=== PATIENT | female | born 1955 | race Caucasian/White ===

== ENCOUNTER → 2018-07-29 09:05 | Outpatient (CLI) | payer BC, SELFPAY ==
[2018-07-29 09:28] LABS: Add Manual Diff / Slide Review NO; Basophils Absolute Auto 100 /uL (0-100); Basophils Percent Auto 0.9 % (0-2); Eosinophils Absolute Auto 100 /uL (0-450); Eosinophils Percent Auto 0.9 % (2-4); Hematocrit 41.2 % (36-46); Hemoglobin 13.9 g/dL (12.0-16.0); Lymphocytes Absolute Auto 1600 /uL (1100-4500); Lymphocytes Percent Auto 28.5 % (25-40); Mean Corpuscular HGB Conc 33.7 % (30-36); Mean Corpuscular Hemoglobin 34.6 PG (26-34); Mean Corpuscular Volume 102.6 fL (80-100); Monocytes Absolute Auto 500 /uL (0-900); Neutrophils Absolute Auto 3500 /uL (1500-7000); Neutrophils Percent Auto 61.7 % (50-75); Platelet Count 288 X10^3/uL (150-400); Red Blood Cell Count 4.02 X10^6/uL (4.0-5.2); Red Cell Distribution Width 13.8 % (11.6-14.8); White Blood Cell Count 5.8 X10^3/uL (4.5-11.0)
[2018-07-29 09:29] LABS: Creatinine Urine Random 62.4 mg/dL
[2018-07-29 09:34] LABS: Microalbumi Creatinin Ratio Ur 9.6 ug/mg CR (<30); Microalbumin Urine Random < 0.6 mg/dL (0-1.6)
[2018-07-29 09:43] LABS: Alanine Aminotransferase 33 IU/L (9-52); Albumin 4.6 g/dL (3.5-5.0); Albumin Globulin Ratio 1.6 (1.0-2.8); Alkaline Phosphatase 64 U/L (38-126); Aspartate Aminotransferase 28 IU/L (14-36); BUN Creatinine Ratio 22.2 (6-22); Bilirubin Total 0.5 mg/dL (0.2-1.3); Blood Urea Nitrogen 20 mg/dL (7-17); Calcium 9.5 mg/dL (8.4-10.2); Carbon Dioxide 29 mmol/L (22-32); Chloride 103 mmol/L (98-107); Cholesterol 210 mg/dL (140-199); Estimated Glomerular Filt Rate > 60.0 mL/min (>60); Globulin 2.8 g/dL (1.7-4.1); Glucose 89 mg/dL (80-110); HDL Cholesterol 64 mg/dL (40-60); HEMOLYSIS < 15 (0-50); LDL Cholesterol Calculated 128 mg/dL (<100); Potassium 4.4 mmol/L (3.4-5.1); Sodium 140 mmol/L (137-145); Total Protein 7.4 g/dL (6.3-8.2); Triglycerides 92 mg/dL (35-150)
== END ==
PROVIDERS: PCP Physician Assistant; Visit Provider Physician Assistant
DX: I49.9 Cardiac arrhythmia, unspecified (principal); R53.83 Other fatigue; Z13.220 Encounter for screening for lipoid disorders; Z13.6 Encounter for screening for cardiovascular disorders; Z86.79 Personal history of other diseases of the circulatory system; Z95.810 Presence of automatic (implantable) cardiac defibrillator; Z51.81 Encounter for therapeutic drug level monitoring
CPT/HCPCS: 36415; 80053; 80061; 82043; 82570; 85025

== ENCOUNTER → 2018-10-26 12:22 | Outpatient (CLI) | payer BC, SELFPAY ==
--- NOTE | 2018-10-26 12:24 | DI.MG.S_ITS ---
BILATERAL DIGITAL SCREENING MAMMOGRAM 3D/2D WITH CAD: 10/26/2018 CLINICAL: Routine screening. Family history of breast cancer. Comparison is made to exams dated: 11/05/2013 mammogram, 07/03/2011 mammogram, and 04/19/2010 mammogram - [facility]. The tissue of both breasts is heterogeneously dense. This may lower the sensitivity of mammography. Current study was also evaluated with a Computer Aided Detection (CAD) system. There are benign calcifications in both breasts. No significant masses, calcifications, or other findings are seen in either breast. There has been no significant interval change. IMPRESSION: There is no mammographic evidence of malignancy. A 1 year screening mammogram is recommended. This exam was interpreted at Station ID: [id number]. NOTE: For mammograms, a report in lay terms will be sent to the patient. Approximately 15% of breast malignancies will not be visualized mammographically. In the management of a palpable breast mass, a negative mammogram must not discourage biopsy of a clinically suspicious lesion. Electronically Signed By: Alfa almanza/lito:10/26/2018 16:49:56 letter sent: Normal Exam ACR BI-RADS Category 2: Benign Finding(s) 3342F
== END ==
PROVIDERS: PCP Physician Assistant; Visit Provider Physician Assistant
DX: Z12.31 Encounter for screening mammogram for malignant neoplasm of breast (principal); Z80.3 Family history of malignant neoplasm of breast
CPT/HCPCS: 77063; 77067

== ENCOUNTER → 2019-03-11 08:01 | Outpatient (CLI) | payer MEDICARE, BC, SELFPAY ==
[2019-03-11 09:16] LABS: Add Manual Diff / Slide Review NO; Basophils Absolute Auto 0 /uL (0-100); Basophils Percent Auto 0.7 % (0-2); Eosinophils Absolute Auto 100 /uL (0-450); Eosinophils Percent Auto 1.2 % (2-4); Hematocrit 41.3 % (36-46); Hemoglobin 14.1 g/dL (12.0-16.0); Lymphocytes Absolute Auto 1700 /uL (1100-4500); Mean Corpuscular HGB Conc 34.2 % (30-36); Mean Corpuscular Hemoglobin 34.5 PG (26-34); Mean Corpuscular Volume 100.9 fL (80-100); Monocytes Absolute Auto 500 /uL (0-900); Monocytes Percent Auto 6.9 % (3-14); Neutrophils Absolute Auto 4400 /uL (1500-7000); Neutrophils Percent Auto 66.2 % (50-75); Platelet Count 302 X10^3/uL (150-400); Red Cell Distribution Width 13.8 % (11.6-14.8); White Blood Cell Count 6.7 X10^3/uL (4.5-11.0)
[2019-03-11 09:27] LABS: Alanine Aminotransferase 20 IU/L (9-52); Albumin 4.1 g/dL (3.5-5.0); Albumin Globulin Ratio 1.3 (1.0-2.8); Alkaline Phosphatase 53 U/L (38-126); Aspartate Aminotransferase 26 IU/L (14-36); BUN Creatinine Ratio 22.9 (6-22); Bilirubin Total 0.5 mg/dL (0.2-1.3); Blood Urea Nitrogen 16 mg/dL (7-17); Calcium 9.2 mg/dL (8.4-10.2); Carbon Dioxide 24 mmol/L (22-32); Chloride 106 mmol/L (98-107); Estimated Glomerular Filt Rate > 60.0 mL/min (>60); Globulin 3.1 g/dL (1.7-4.1); Glucose 93 mg/dL (80-110); HEMOLYSIS < 15 (0-50); Sodium 141 mmol/L (137-145); Total Protein 7.2 g/dL (6.3-8.2)
[2019-03-11 10:23] LABS: Thyroid Stimulating Hormone 3.45 uIU/mL (0.47-4.68)
== END ==
PROVIDERS: PCP Physician Assistant; Visit Provider Internal Medicine Cardiovascular Disease
DX: I49.8 Other specified cardiac arrhythmias (principal); I47.2 Ventricular tachycardia
CPT/HCPCS: 36415; 80053; 84443; 85025

== ENCOUNTER 2019-06-16 07:42 | Day surgery (SDC) | payer MEDICARE, BC, SELFPAY ==
[2019-06-16 08:10] VITALS: BP 118/75; PULSE 74; RESP 15; TEMP 36.1; O2SAT 98
[2019-06-16 08:12] VITALS: BMI 26.6
--- NOTE | 2019-06-16 08:25 | PM.PREOP ---
Pre-operative Note Interval Note History & Physical reviewed/Exam performed by Physician: Yes Changes to H&P: No
[2019-06-16] MEDS: LACTATED RINGERS 1,000 ML 42 ML IV (08:30)
--- NOTE | 2019-06-16 09:18 | PM.OP.ENDO ---
Operative Date/Time/Diagnoses Date of procedure: 06/16/19 Time of procedure: 09:18 Pre-op diagnosis: Average risk for colon cancer, never had screening colonoscopy Post-op diagnosis: same Procedure & Clinicians Study performed: Colonoscopy Same procedure as scheduled: Yes Indications: This is a 64-year-old woman with a history of life-threatening cardiac arrhythmias who has an ICD in pacer implanted. She has never had a screening colonoscopy due to her other medical issues. She is here today for her 1st screening colonoscopy, which will be done under monitored anesthesia care. Surgeon: Carlota Ibarra Procedure Notes SCOAP/Timeout: Performed Procedure in detail: The patient was brought to the room and placed in left lateral decubitus position with all bony prominences padded. A time-out was performed and then the patient was given procedural sedation by the anesthesiologist. Vitals were monitored throughout the procedure and remained stable. Once adequately sedated the procedure was begun. A rectal exam was performed revealing [no abnormalities]. The colonoscope was then introduced to the rectum and advanced to the cecum in the usual fashion. []The cecum was identified by the appendiceal orifice, the mucosal try fold, and the ileocecal valve. The scope was then retracted while rotating side to side and examining each mucosal fold. [No abnormalities were seen.] At the conclusion procedure retroflexion was performed and minimal grade 1 internal hemorrhoids without stigmata of bleeding were seen. The scope was then withdrawn from the rectum the procedure was concluded. The patient tolerated the procedure well was transferred to the PACU in stable condition. Scope withdrawal time: 8 Specimen(s): none sent Complications: none Impression: Normal colon, no polyps, diverticula or significant hemorrhoids seen Post-procedure Recommendations: Colonscopy in 10 years (Unless new or concerning colorectal symptoms arise) Follow up: as needed Disposition: PACU
[2019-06-16 09:21] VITALS: BP 110/68; PULSE 71; RESP 6; TEMP 36.1; O2SAT 97
[2019-06-16 09:27] VITALS: BP 113/68; PULSE 70; RESP 16; O2SAT 97
[2019-06-16 09:31] VITALS: BP 113/70; PULSE 73; RESP 15; O2SAT 97
[2019-06-16 09:36] VITALS: BP 116/70; PULSE 69; RESP 17; O2SAT 97
[2019-06-16 09:59] VITALS: BP 120/77; PULSE 71; RESP 14; TEMP 35.8; O2SAT 99
== END 2019-06-16 10:11 | disposition home or self-care (01) ==
PROVIDERS: PCP Physician Assistant; Visit Provider Surgery
PROC: 0DJD8ZZ Inspection of Lower Intestinal Tract, Via Natural or Artificial Opening Endoscopic (ICD-10-PCS; CPT 45378; principal; 2019-06-16 08:45)
DX: Z12.11 Encounter for screening for malignant neoplasm of colon (principal); K64.0 First degree hemorrhoids
CPT/HCPCS: G0121; J2250; J2704; J3010

== ENCOUNTER 2019-07-06 00:09 | Emergency (ER) | payer MEDICARE, BC, SELFPAY ==
[2019-07-06 00:26] VITALS: BP 119/73; PULSE 74; RESP 18; TEMP 36.9; O2SAT 98; BMI 25.7
--- NOTE | 2019-07-06 00:26 | DI.RAD.S_ITS ---
PROCEDURE: XR CHEST 2V INDICATIONS: chest pain with cough TECHNIQUE: 2 views of the chest were acquired. COMPARISON: None. FINDINGS: Surgical changes and devices: There is a cardiac pacemaker/defibrillator with leads in appropriate position. Lungs and pleura: Mild left basilar infiltrate or atelectasis. No pleural effusions or pneumothorax. Mediastinum: Mediastinal contours are normal. Heart size is normal. Bones and chest wall: No suspicious bony abnormalities. Soft tissues appear unremarkable. IMPRESSION: Mild left basilar infiltrate or atelectasis. Dictated by: Faby Carbajal M.D. on 07/06/2019 at 8:51 Approved by: Faby Carbajal M.D. on 07/06/2019 at 8:52
[2019-07-06] MEDS: ALBUTEROL/IPRATROPIUM 3 ML AMPUL INH (00:50)
[2019-07-06] MEDS: KETOROLAC 60 MG/2 ML VIAL IM (00:50)
--- NOTE | 2019-07-06 01:25 | ED_ITS ---
HPI - URI/Sore Throat General Chief Complaint: Upper Respiratory Symptoms Stated Complaint: throat/chest pain Time Seen by Provider: 07/06/19 00:10 Source: patient Mode of arrival: Ambulatory Limitations: no limitations History of Present Illness HPI Narrative: 64-year-old female nonsmoker with cardiac history presents with a chief complaint of runny nose, sore throat, dry hacking cough and sharp and stabbing pleuritic type chest pain. She has had upper respiratory symptoms for about 1 week and presented to the walk-in clinic today for evaluation. They tested her for strep which was negative and gave her prescription for Tessalon Perles and nasal spray. She states that those medications are not helping and every time she coughs or takes a deep breath the sharp and stabbing pain is becoming unbearable. She denies recent long distance travel, history of clot, injuries or surgeries. She denies any hemoptysis or shortness of breath. She is not dizzy nor weak or lightheaded, and denies any vomiting or diarrhea. She has not taken any Tylenol or Motrin MD Complaint: cough, sore throat, rhinorrhea and nasal congestion Onset (ago): day(s) Duration: constant Severity: moderate Relieving factors: nothing Exacerbating factors: other Able to tolerate fluids by mouth: Yes Associated symptoms: rhinorrhea, nasal congestion, sore throat, cough and chest pain Related Data Home Medications Medication Instructions Recorded Confirmed ICD (Implantable Cardio Device) #1 ea 02/26/18 07/05/19 Septalocculsion Device IMPLANT 07/29/18 07/05/19 midodrine 2.5 mg tablet 2.5 mg PO ONCE PRN 12/10/18 07/05/19 flecainide 100 mg tablet 100 mg PO Q12H 05/21/19 07/05/19 Previous Rx's Medication Instructions Recorded estradiol See Rx Instructions VAG .HS #42.5 11/11/18 gram estradiol 0.075 mg/24 hr 1 patch TRANSDERMAL 2XW #24 each 11/18/18 semiweekly transdermal patch rizatriptan 10 mg tablet 10 mg PO Q2H PRN #27 tab 04/12/19 benzonatate 100 mg capsule 100 mg PO BID PRN #20 cap 07/05/19 fluticasone propionate 50 1 spray NASAL BID 14 Days #18.2 ml 07/05/19 mcg/actuation nasal spray,suspension codeine-guaifenesin 8 ml PO Q4-6H PRN #473 ml 07/06/19 ketorolac 10 mg PO Q6H PRN #14 tab 07/06/19 Allergies Allergy/AdvReac Type Severity Reaction Status Date / Time shellfish derived Allergy Severe Tongue & Verified 07/05/19 08:16 eye swelling, hives Review of Systems Constitutional Constitutional: Denies chills, Denies fatigue, Denies fever(s), Denies frequent falls, Denies lethargy and Denies weakness Eyes Eyes: Denies change in vision, Denies eye discharge, Denies irritation and Denies loss of vision ENT Ears, Nose, Mouth, and Throat: Denies change in voice, Denies dizziness, Denies neck pain, Reports sore throat and Denies throat swelling Cardiovascular Cardiovascular: Reports chest pain, Denies irregular heart rhythm, Denies lightheadedness, Denies palpitations, Denies dyspnea, Denies dyspnea on exertion and Denies orthopnea Respiratory Respiratory: Reports cough, Reports pain on inspiration, Reports pain with cough, Denies dyspnea, Denies dyspnea on exertion and Denies wheezing Gastrointestinal Gastrointestinal: Denies abdominal pain, Denies change in bowel habits, Denies diarrhea, Denies nausea and Denies vomiting Genitourinary Genitourinary: Denies hematuria, Denies flank pain, Denies urinary incontinence and Denies urinary urgency Musculoskeletal Musculoskeletal: Denies back pain, Denies muscle weakness, Denies neck pain, Denies numbness and Denies tingling Integumentary/Breasts Skin/Breast: Denies pruritus, Denies erythema, Denies rash and Denies wounds Neurologic Neurologic: Denies behavioral changes, Denies confusion, Denies dizziness, Denies frequent falls, Denies loss of vision, Denies numbness, Denies tingling and Denies weakness Psychiatric Psychiatric: Denies anxiety, Denies behavioral changes, Denies confusion, Denies depression, Denies homicidal ideation and Denies suicidal ideation Endocrine Endocrine: Denies fatigue, Denies flushing and Denies palpitations Hematologic/Lymphatic Hematologic/Lymphatic: Denies easy bruising Allergic/Immunologic Allergic/Immunologic: Denies urticaria, Denies throat swelling and Denies wheezing Patient History Surgical History History of implantable cardiac defibrillator (ICD) (Acute) Hx of hysterectomy (Acute) Hx of tonsillectomy (Acute) Social History marital status: unmarried,living together household members: significant other occupational status: previously employed Smoking Status: Never smoker second hand exposure: No alcohol intake: current (a beer or two once a month.) substance use type: does not use Smoking Status: Never smoker Exam Narrative Exam Narrative: GENERAL: [64] year old patient appears stated age. Well- nourished, well-developed patient, in mild distress. HEAD: Atraumatic. Normocephalic. EYES: Pupils equal round and reactive. Extraocular motions intact. No scleral icterus. No injection or drainage. ENT: Nose without bleeding, purulent drainage. Throat without erythema, tonsillar hypertrophy or exudate. Clear postnasal drip. Airway patent. NECK: Trachea midline. Non tender CARDIOVASCULAR: Regular rate and rhythm without murmurs, gallops, or rubs. RESPIRATORY: Clear to auscultation. Breath sounds equal bilaterally. No wheezes, rales, or rhonchi. Deep breath elicits cough, subtle wheeze noted. GASTROINTESTINAL: Abdomen soft, non-tender, nondistended. EXTREMITIES: No edema or joint tenderness. BACK: Nontender without deformity or crepitance. No flank tenderness. NEURO: AOx3. SKIN: No rash or erythema of visible areas Initial Vital Signs Initial Vital Signs: Vital Signs Temperature 98.4 F 07/06/19 00:26 Pulse Rate 74 07/06/19 00:26 Respiratory Rate 18 07/06/19 00:26 Blood Pressure 119/73 07/06/19 00:26 Pulse Oximetry 98 07/06/19 00:26 Course Orders Ordered: ED Orders 07/06/19 00:26 XR chest 2V Stat EKG-12 Lead Stat 07/06/19 00:54 Throat Culture Stat 07/06/19 00:56 Influenza A & B (PCR) Stat Discontinued Medications Albuterol (Ventolin Hfa Prepack) 1 box MISC SEEINSTR ONE Stop: 07/06/19 02:47 Last Admin: 07/06/19 02:51 Dose: 1 box Documented by: KENNETH Albuterol/Ipratropium (Duoneb) 3 ml INH NOW ONE Stop: 07/06/19 00:27 Last Admin: 07/06/19 00:50 Dose: 3 ml Documented by: DORIS Ketorolac Tromethamine (Toradol) 60 mg IM NOW ONE Stop: 07/06/19 00:28 Last Admin: 07/06/19 00:50 Dose: 60 mg Documented by: DORIS Vital Signs Vital signs: Vital Signs - 8 hr 07/06/19 00:26 07/06/19 01:53 07/06/19 02:52 Temperature 98.4 F Pulse Rate 74 71 70 Respiratory Rate 18 16 Blood Pressure 119/73 113/66 Pulse Oximetry 98 96 97 MDM - URI/Sore Throat Lab Data Labs: Lab Results 07/06/19 Range/Units 00:56 Influenza A (RT-PCR) Flu a negative (NEGATIVE) Influenza B (RT-PCR) Flu b negative (NEGATIVE) Imaging Data Chest x-ray: Radiologist's Impression: NAP - no infiltrate ECG Data Attestation: I personally reviewed and interpreted this ECG as follows: Interpretation: Paced rhythm, no ectopy or signs of ischemia such as ST segmental elevation Discharge Plan Departure Patient Disposition: Home Clinical Impression: Acute upper respiratory infection, Acute costochondritis Discharge Date/Time: 07/06/19 02:59 Instructions: Costochondritis Activity Restrictions/Additional Instructions: *You have been diagnosed with [ viral upper respiratory infection, co stochondritis] *What to do: *Take medications as directed: Prescriptions sent to [facility] *Follow up with your primary care provider in 2-3 days, call for an appointment. Let them know you were seen in the Emergency Department and that we ask that you be seen in follow up *Return to ER if you should have any new, worsening or concerning symptoms Prescriptions: New ketorolac 10 mg tablet 10 mg PO Q6H PRN (Reason: pain) Qty: 14 RF: 0 codeine-guaifenesin 6.3-100 mg/5 mL liquid 8 ml PO Q4-6H PRN (Reason: cough) Qty: 473 RF: 0 No Action (DME) ICD (Implantable Cardio Device) See Rx Instructions .Route .MEDSUPPLY Qty: 1 RF: 0 Septalocculsion Device Implant RF: 0 fluticasone propionate [Flonase Allergy Relief] 50 mcg/actuation spray,suspension 1 spray NASAL BID 14 Days Qty: 18.2 RF: 0 benzonatate [Tessalon Perles] 100 mg capsule 100 mg PO BID PRN (Reason: cough) Qty: 20 RF: 0 estradiol 0.01 % (0.1 mg/gram) cream See Rx Instructions VAG .HS Qty: 42.5 RF: 1 estradiol [Vivelle] 0.075 mg/24 hr patch semiweekly 1 patch Transdermal 2XW Qty: 24 RF: 3 rizatriptan 10 mg tablet 10 mg PO Q2H PRN (Reason: migraine headache) Qty: 27 RF: 1 midodrine 2.5 mg tablet 2.5 mg PO ONCE PRN (Reason: Hypotension) RF: 0 flecainide 100 mg tablet 100 mg PO Q12H RF: 0 Referrals: Ale Gordon PA-C [Primary Care Provider] -
[2019-07-06 01:37] LABS: Influenza A - CEPHEID Flu A NEGATIVE (NEGATIVE); Influenza B - CEPHEID Flu B NEGATIVE (NEGATIVE)
[2019-07-06 01:53] VITALS: PULSE 71; O2SAT 96
[2019-07-06] MEDS: ALBUTEROL HFA PREPACK 1 BOX MISC (02:51)
[2019-07-06 02:52] VITALS: BP 113/66; PULSE 70; RESP 16; O2SAT 97
== END 2019-07-06 02:59 | disposition home or self-care (01) ==
PROVIDERS: Emergency Provider Emergency Medicine; PCP Physician Assistant
DX: J06.9 Acute upper respiratory infection, unspecified (principal); R07.89 Other chest pain; M94.0 Chondrocostal junction syndrome [Tietze]
CPT/HCPCS: 71046; 87070; 87147; 87502; 93005; 94640; 96372; 99284; 99285; J1885

== ENCOUNTER 2019-07-07 12:04 | Emergency (ER) | payer MEDICARE, BC, SELFPAY ==
[2019-07-07 12:20] VITALS: BP 124/73; PULSE 80; RESP 18; TEMP 36.7; O2SAT 96
--- NOTE | 2019-07-07 14:12 | ED_ITS ---
HPI - URI/Sore Throat General Chief Complaint: Upper Respiratory Symptoms Stated Complaint: blood in urine Time Seen by Provider: 07/07/19 13:13 Source: patient Mode of arrival: Ambulatory Limitations: no limitations History of Present Illness HPI Narrative: Patient is a 64-year-old female presenting with upper respiratory like symptoms. She has actually seen and evaluated here yesterday how her culture of her throat came back positive for strep knee but was tested negative for influenza and had a negative chest x-ray. She says today she noticed some blood in her urine but denies any painful or frequent urination. She has no abdominal pain nausea or vomiting. She has had chest discomfort ongoing for a week is not any worse today. She denies any palpitations. She does have a productive green cough. She says she is worried because she has had an ICD most of her life in is on her 11 28 for a ventricular arrhythmia. She is worried that it might aggravate her arrhythmia. However at this time she has no signs or symptoms of this. Related Data Home Medications Medication Instructions Recorded Confirmed ICD (Implantable Cardio Device) #1 ea 02/26/18 07/05/19 Septalocculsion Device IMPLANT 07/29/18 07/05/19 flecainide 100 mg tablet 100 mg PO Q12H 05/21/19 07/07/19 estradiol 1 patch TRANSDERMAL 2XW 07/07/19 07/07/19 Previous Rx's Medication Instructions Recorded estradiol See Rx Instructions VAG .HS #42.5 11/11/18 gram rizatriptan 10 mg tablet 10 mg PO Q2H PRN #27 tab 04/12/19 benzonatate 100 mg capsule 100 mg PO BID PRN #20 cap 07/05/19 fluticasone propionate 50 1 spray NASAL BID 14 Days #18.2 ml 07/05/19 mcg/actuation nasal spray,suspension codeine-guaifenesin 8 ml PO Q4-6H PRN #473 ml 07/06/19 ketorolac 10 mg PO Q6H PRN #14 tab 07/06/19 amoxicillin 500 mg PO BID #14 cap 07/07/19 fluconazole [Diflucan] 150 mg PO DAILY PRN #1 tab 07/07/19 Allergies Allergy/AdvReac Type Severity Reaction Status Date / Time shellfish derived Allergy Severe Tongue & Verified 07/05/19 08:16 eye swelling, hives Review of Systems Review of Systems Narrative: GENERAL: Denies chills, fatigue, malaise, fever, sweats, travel HEENT: See HPI RESPIRATORY: Denies dyspnea, cough, wheezing, hemoptysis, sputum. CARDIOVASCULAR: Denies chest pain, palpitations, orthopnea, edema GASTROINTESTINAL: Denies nausea, vomiting, abdominal pain, diarrhea, constipation, melena. : See HPI Denies dysuria, frequency, incontinence, hematuria, urinary retention, flank pain. MUSCULOSKELETAL: Denies weakness, joint pain, or bony pain SKIN: No rash, no erythema, no pruritus NEUROLOGIC: Denies weakness, dizziness, headache, numbness, change in speech, confusion PSYCHIATRIC: No concerning psychosocial issues. 12 point review of systems is negative except for those stated above and HPI Patient History Surgical History History of implantable cardiac defibrillator (ICD) (Acute) Hx of hysterectomy (Acute) Hx of tonsillectomy (Acute) Social History marital status: unmarried,living together household members: significant other occupational status: previously employed Smoking Status: Never smoker second hand exposure: No alcohol intake: current (a beer or two once a month.) substance use type: does not use Smoking Status: Never smoker Exam Initial Vital Signs Initial Vital Signs: Vital Signs Temperature 98.1 F 07/07/19 12:20 Pulse Rate 80 07/07/19 12:20 Respiratory Rate 18 07/07/19 12:20 Blood Pressure 124/73 07/07/19 12:20 Pulse Oximetry 96 07/07/19 12:20 GENERAL: Well-appearing, well-nourished and in no acute distress. HEENT: Head atraumatic,EOMI, pupils reactive, face symmetric, moist mucous membranes PHARYNX: No erythema, no tonsillar exudate, no cervical lymphadenopathy CARDIOVASCULAR: Regular rate and rhythm without murmurs, rubs or gallops. RESPIRATORY: Breath sounds equal bilaterally, no wheezes rales or rhonchi. ABDOMEN: Soft, nontender. Normoactive bowel sounds all 4 quadrants. No guarding or rebound. : No CVA tenderness EXTREMITIES: Normal range of motion, no clubbing or edema. Neurovascularly intact NEUROLOGICAL: Alert and oriented x4.Normal gait and speech. SKIN: Warm, dry, no laceration, no petechiae, no rashes or lesions. Course Orders Ordered: ED Orders 07/07/19 14:31 EKG-12 Lead Stat Vital Signs Vital signs: Vital Signs - 8 hr 07/07/19 12:20 07/07/19 14:30 Temperature 98.1 F Pulse Rate 80 71 Respiratory Rate 18 Blood Pressure 124/73 Blood Pressure [Left Arm] 126/69 Pulse Oximetry 96 99 MDM - URI/Sore Throat Lab Data Attestation: I reviewed the patient's lab results. Labs: Urine Dip Bedside Urine Glucose Negative Bedside Urine Bilirubin + 1 Bedside Urine Ketone - Negative Urine Specific Reva 1.025 Bedside Urine Occult Blood - Negative Bedside Urine pH 6.0 Bedside Urine Protein +/- 15 Bedside Urine Urobilinogen - Negative Bedside Urine Nitrite - Negative Bedside Urine Leukocytes - Negative Esterase ECG Data Attestation: I personally reviewed and interpreted this ECG as follows: Prior ECG tracings: available for review Interpretation: Paced rhythm rate 69 p.r. interval [address] changes p.r. interval is slightly increased from yesterday. However pacemaker spikes are still appropriate. [facility] Narrative Medical decision making narrative: Patient overall appears not septic. Throat culture did come back positive for group B strep. She has been having chest discomfort off and on for the last 1 week it's not any worse today. EKG shows a paced rhythm of similar to yesterday. She'd a negative chest x-ray yesterday. At this time will treat her for her group B strep with amoxicillin. Discharge Plan Departure Patient Disposition: Home Clinical Impression: Strep pharyngitis Discharge Date/Time: 07/07/19 15:20 Instructions: DI for Strep Throat Activity Restrictions/Additional Instructions: *You have been diagnosed with strep pharyngitis *What to do: At this time your culture grew back strep in you do require antibiotics. Her symptoms may be related to this. There is no blood in your urine or signs or symptoms of UTI. Your EKG is overall reassuring and pacemaker appears to be working. *Continue to take medications as directed Amoxicillin 500 mg twice a day for 7 days--> SENT TO [facility] *Follow up with your primary care provider in 2-3 days *Return to ER if you should have increase in chest pain shortness of breath palpitations, passing out fever not controlled decreased fluid intake or any new, worsening or concerning symptoms Prescriptions: New amoxicillin 500 mg capsule 500 mg PO BID Qty: 14 RF: 0 fluconazole [Diflucan] 150 mg tablet 150 mg PO DAILY PRN (Reason: YEAST INFECTION) Qty: 1 RF: 0 No Action (DME) ICD (Implantable Cardio Device) See Rx Instructions .Route .MEDSUPPLY Qty: 1 RF: 0 Septalocculsion Device Implant RF: 0 fluticasone propionate [Flonase Allergy Relief] 50 mcg/actuation spray,suspension 1 spray NASAL BID 14 Days Qty: 18.2 RF: 0 benzonatate [Tessalon Perles] 100 mg capsule 100 mg PO BID PRN (Reason: cough) Qty: 20 RF: 0 estradiol 0.01 % (0.1 mg/gram) cream See Rx Instructions VAG .HS Qty: 42.5 RF: 1 rizatriptan 10 mg tablet 10 mg PO Q2H PRN (Reason: migraine headache) Qty: 27 RF: 1 flecainide 100 mg tablet 100 mg PO Q12H RF: 0 estradiol 0.075 mg/24 hr patch semiweekly 1 patch transdermal 2XW RF: 0 ketorolac 10 mg tablet 10 mg PO Q6H PRN (Reason: pain) Qty: 14 RF: 0 codeine-guaifenesin 6.3-100 mg/5 mL liquid 8 ml PO Q4-6H PRN (Reason: cough) Qty: 473 RF: 0 Referrals: Ale Gordon PA-C [Primary Care Provider] -
[2019-07-07 14:30] VITALS: BP 126/69; PULSE 71; O2SAT 99
== END 2019-07-07 15:20 | disposition home or self-care (01) ==
PROVIDERS: Emergency Provider Emergency Medicine; PCP Physician Assistant
DX: J02.0 Streptococcal pharyngitis (principal)
CPT/HCPCS: 81003; 93005; 99281; 99284

== ENCOUNTER → 2019-07-09 14:50 | Outpatient (CLI) | payer MEDICARE, BC, SELFPAY ==
[2019-07-09 18:26] LABS: Bacteria Urine None Seen
[2019-07-09 18:43] LABS: Appearance Urine UA CLEAR; Bilirubin Urine UA NEGATIVE (NEGATIVE); Color Urine UA YELLOW; Glucose Urine UA NEGATIVE (Negative); Ketones Urine UA NEGATIVE (NEGATIVE); Leukocyte Esterase Urine UA NEGATIVE (NEGATIVE); Nitrite Urine UA NEGATIVE (Negative); Occult Blood Urine UA TRACE-LYSED (Negative); Protein Urine UA NEGATIVE (Negative); Specific Gravity Urine UA 1.015 (1.000-1.035); Urobilinogen Urine UA 0.2 E.U./dL (0.2)
[2019-07-09 18:53] LABS: Culture Indicated Urine Cult Not Indicated; RBC Urine 0-1/HPF (0-5/HPF); Squamous Epithelial Cell Urine 1-5 /HPF (0-5/HPF); WBC Urine 0-1/HPF (0-5/HPF); pH Urine UA 5.5 (4.5-8.0)
== END ==
PROVIDERS: PCP Physician Assistant; Visit Provider Family Medicine
DX: R05 Cough (principal); J02.0 Streptococcal pharyngitis; R31.0 Gross hematuria; R61 Generalized hyperhidrosis
CPT/HCPCS: 81001; 87070; 87077; 87205

== ENCOUNTER → 2019-07-09 15:24 | Outpatient (CLI) | payer MEDICARE, BC, SELFPAY ==
[2019-07-09 16:39] LABS: Add Manual Diff / Slide Review NO; Basophils Absolute Auto 0 /uL (0-100); Basophils Percent Auto 0.6 % (0-2); Eosinophils Absolute Auto 100 /uL (0-450); Eosinophils Percent Auto 1.7 % (2-4); Hematocrit 38.2 % (36-46); Lymphocytes Absolute Auto 1400 /uL (1100-4500); Lymphocytes Percent Auto 24.2 % (25-40); Mean Corpuscular HGB Conc 33.9 % (30-36); Mean Corpuscular Hemoglobin 34.1 PG (26-34); Mean Corpuscular Volume 100.3 fL (80-100); Monocytes Absolute Auto 400 /uL (0-900); Monocytes Percent Auto 6.3 % (3-14); Neutrophils Absolute Auto 3900 /uL (1500-7000); Neutrophils Percent Auto 67.2 % (50-75); Platelet Count 320 X10^3/uL (150-400); Red Blood Cell Count 3.81 X10^6/uL (4.0-5.2); Red Cell Distribution Width 12.9 % (11.6-14.8); White Blood Cell Count 5.8 X10^3/uL (4.5-11.0)
[2019-07-09 17:46] LABS: Alanine Aminotransferase 33 IU/L (<35); Albumin 4.2 g/dL (3.5-5.0); Albumin Globulin Ratio 1.6 (1.0-2.8); Alkaline Phosphatase 63 U/L (38-126); Aspartate Aminotransferase 32 IU/L (14-36); BUN Creatinine Ratio 21.4 (6-22); Bilirubin Total 0.4 mg/dL (0.2-1.3); Blood Urea Nitrogen 15 mg/dL (7-17); Calcium 9.5 mg/dL (8.4-10.2); Carbon Dioxide 28 mmol/L (22-32); Chloride 103 mmol/L (98-107); Estimated Glomerular Filt Rate > 60.0 mL/min (>60); Globulin 2.7 g/dL (1.7-4.1); Glucose 85 mg/dL (80-110); HEMOLYSIS < 15 (0-50); Lactate Dehydrogenase 460 U/L (313-618); Sodium 139 mmol/L (137-145); Total Protein 6.9 g/dL (6.3-8.2)
[2019-07-12 13:33] LABS: Mitogen-NIL 8.08 IU/mL; NIL 0.02 IU/mL; QuantiFERON TB NEGATIVE (Negative); TB1-NIL 0.03 IU/mL; TB2-NIL 0.01 IU/mL
== END ==
PROVIDERS: PCP Family Medicine; Visit Provider Family Medicine
DX: J02.0 Streptococcal pharyngitis (principal); R05 Cough; R61 Generalized hyperhidrosis; R31.0 Gross hematuria
CPT/HCPCS: 36415; 80053; 81001; 83615; 85025; 86480; 87040; 87070; 87077; 87186; 87205

== ENCOUNTER → 2019-08-06 14:56 | Outpatient (CLI) | payer MEDICARE, BC, SELFPAY ==
[2019-08-06 15:44] LABS: BUN Creatinine Ratio 23.8 (6-22); Blood Urea Nitrogen 19 mg/dL (7-17); Estimated Glomerular Filt Rate > 60.0 mL/min (>60)
== END ==
PROVIDERS: PCP Family Medicine; Referring Provider Family Medicine; Visit Provider Family Medicine
DX: Z01.812 Encounter for preprocedural laboratory examination (principal); R05 Cough; R61 Generalized hyperhidrosis
CPT/HCPCS: 36415; 82565; 84520

== ENCOUNTER → 2019-08-09 08:39 | Outpatient (CLI) | payer MEDICARE, BC, SELFPAY ==
--- NOTE | 2019-08-09 09:44 | DI.CT.S_ITS ---
PROCEDURE: CT CHEST W CON INDICATIONS: chronic cough TECHNIQUE: After the administration of intravenous contrast, 5 mm thick sections acquired from the pulmonary apices to the posterior costophrenic angles. 1 mm axial lung, 5 mm thick coronal and sagittal reformats and 7 mm axial MIP were acquired. For radiation dose reduction, the following was used: automated exposure control, adjustment of mA and/or kV according to patient size. COMPARISON: None. FINDINGS: Image quality: Excellent. Lungs and pleura: 2 mm nodule seen within the left upper lobe on image 111 series 3. Scattered subsegmental atelectasis and/or scarring. No focal consolidation. No pleural effusions or pneumothorax. Central and peripheral airways are patent and normal in caliber. Mediastinum: Heart size is normal. No pericardial effusion. Mildly prominent right hilar lymphoid tissue. No mediastinal or hilar adenopathy by size criteria. Thoracic aorta and central pulmonary arteries are normal in size. Esophagus is normal in caliber. No hiatal hernia. Bones and chest wall: No suspicious bony lesions. No vertebral body compression fractures. No axillary or supraclavicular adenopathy by size criteria. Thyroid gland unremarkable. Hepatic hypodensity measuring 1 cm in the subcapsular anterior left lobe on image 47/2, indeterminate. Hepatic steatosis. IMPRESSION: 2 mm nodule within the left upper lobe, technically indeterminate. This could be followed up with one year interval chest CT, to exclude early metastatic malignant possibilities. Hepatic hypodense lesion, possibly cyst or small hemangioma although technically nonspecific No acute consolidation. Additional chronic and incidental findings as above. Dictated by: Chandana Trujillo M.D. on 08/09/2019 at 12:26 Approved by: Chandana Trujillo M.D. on 08/09/2019 at 12:32
== END ==
PROVIDERS: PCP Family Medicine; Referring Provider Family Medicine; Visit Provider Family Medicine
DX: R05 Cough (principal); R61 Generalized hyperhidrosis; R91.1 Solitary pulmonary nodule; K76.0 Fatty (change of) liver, not elsewhere classified
CPT/HCPCS: 71260; Q9967

== ENCOUNTER → 2019-12-06 16:11 | Outpatient (CLI) | payer MEDICARE, BC, SELFPAY ==
[2019-12-07 12:08] LABS: SARS CoV19 IgG Negative (Negative)
== END ==
PROVIDERS: PCP Family Medicine; Referring Provider Family Medicine; Visit Provider Family Medicine
DX: Z03.818 Encounter for observation for suspected exposure to other biological agents ruled out (principal)
CPT/HCPCS: 36415; 86769

== ENCOUNTER 2020-05-04 17:47 | Emergency (ER) | payer MEDICARE, BC, SELFPAY ==
[2020-05-04 17:54] VITALS: BP 150/65; PULSE 71; RESP 25; TEMP 36.9; O2SAT 99; BMI 26.6
--- NOTE | 2020-05-04 18:01 | ED_ITS ---
HPI - Arrhythmia/Palpitations General Chief Complaint: Chest Pain Stated Complaint: heart palpitations and CP, lightheadedness Time Seen by Provider: 05/04/20 17:55 Source: patient Mode of arrival: Ambulatory Limitations: no limitations History of Present Illness HPI narrative: 65-year-old female nonsmoker with history of asthma and long time cardiac patient with an ICD (managed at [facility]) presents with 3 days of left-sided sharp and stabbing chest pain after bumping her pacemaker site. Additionally she has had some dizziness, weakness and lightheadedness along with fatigue. She says at times her pain is sharp and stabbing and others it is heavy. She denies any palpitations. She has had no fever chills. She denies nausea,. 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 She denies any medication or dietary change. Onset (ago): day(s) Severity: moderate Arrhythmia history: AICD Related Data Home Medications Medication Instructions Recorded Confirmed ICD (Implantable Cardio Device) #1 ea 02/26/18 05/04/20 Septalocculsion Device IMPLANT 07/29/18 05/04/20 flecainide 100 mg tablet 100 mg PO Q12H 05/21/19 05/04/20 Previous Rx's Medication Instructions Recorded estradiol See Rx Instructions VAG .HS #42.5 11/11/18 gram rizatriptan 10 mg tablet 10 mg PO Q2H PRN #27 tab 04/12/19 fluconazole [Diflucan] 150 mg PO DAILY PRN #1 tab 07/07/19 doxycycline monohydrate 100 mg 100 mg PO BID #20 cap 07/09/19 capsule albuterol sulfate 90 mcg/actuation 2 puff INHALATION Q6H PRN #6.7 gram 07/15/19 aerosol inhaler ketorolac 10 mg tablet 10 mg PO Q6H PRN #14 tab 07/27/19 codeine 6.3 mg-guaifenesin 100 8 ml PO Q4-6H PRN #473 ml 08/05/19 mg/5 mL oral liquid estradiol 0.075 mg/24 hr 1 patch TRANSDERMAL 2XW #24 each 02/09/20 semiweekly transdermal patch Allergies Allergy/AdvReac Type Severity Reaction Status Date / Time shellfish derived Allergy Severe Tongue & Verified 05/04/20 17:59 eye swelling, hives Review of Systems Constitutional Constitutional: Denies chills, Denies fatigue, Denies fever(s), Denies frequent falls, Denies lethargy and Denies weakness Eyes Eyes: Denies change in vision, Denies eye discharge, Denies irritation and Denies loss of vision ENT Ears, Nose, Mouth, and Throat: Denies change in voice, Denies dizziness, Denies neck pain, Denies sore throat and Denies throat swelling Cardiovascular Cardiovascular: Reports chest pain, Denies irregular heart rhythm, Reports lightheadedness, Denies palpitations, Reports dyspnea, Denies dyspnea on exertion and Denies orthopnea Respiratory Respiratory: Denies cough, Reports dyspnea, Denies dyspnea on exertion and Denies wheezing Gastrointestinal Gastrointestinal: Denies abdominal pain, Denies change in bowel habits, Denies diarrhea, Denies nausea and Denies vomiting Musculoskeletal Musculoskeletal: Denies neck pain and Denies numbness Integumentary/Breasts Skin/Breast: Denies pruritus, Denies erythema, Denies rash and Denies wounds Neurologic Neurologic: Denies behavioral changes, Denies confusion, Denies dizziness, Denies frequent falls, Denies loss of vision, Denies numbness and Denies w eakness Psychiatric Psychiatric: Denies anxiety, Denies behavioral changes, Denies confusion, Denies depression, Denies homicidal ideation and Denies suicidal ideation Endocrine Endocrine: Denies fatigue, Denies flushing and Denies palpitations Hematologic/Lymphatic Hematologic/Lymphatic: Denies easy bruising Allergic/Immunologic Allergic/Immunologic: Denies urticaria, Denies throat swelling and Denies wheezing Patient History Medical History Cough with expectoration (Acute) Incidental lung nodule, less than or equal to 3mm (Acute) Night sweats (Acute) Traumatic loss of toenail of great toe (Acute) Surgical History History of implantable cardiac defibrillator (ICD) (Acute) Hx of hysterectomy (Acute) Hx of tonsillectomy (Acute) Social History marital status: unmarried,living together household members: significant other occupational status: previously employed Smoking Status: Never smoker second hand exposure: No alcohol intake: current (a beer or two once a month.) substance use type: does not use Smoking Status: Never smoker Exam Narrative Exam Narrative: GENERAL: [65] year old patient appears stated age. Well-nour ished, well-developed patient, in mild distress. HEAD: Atraumatic. Normocephalic. EYES: Pupils equal round and reactive. Extraocular motions intact. No scleral icterus. No injection or drainage. ENT: Nose without bleeding, purulent drainage. Throat without erythema, tonsillar hypertrophy or exudate. Airway patent. NECK: Trachea midline. Non tender CARDIOVASCULAR: Regular rate and rhythm without murmurs, gallops, or rubs. Tender to palpation over pacemaker, no swelling, redness or external man ifestation of illness disease obvious on exam RESPIRATORY: Clear to auscultation. Breath sounds equal bilaterally. No wheezes, rales, or rhonchi. GASTROINTESTINAL: Abdomen soft, non-tender, nondistended. EXTREMITIES: No edema or joint tenderness. BACK: Nontender without deformity or crepitance. No flank tenderness. NEURO: AOx3. SKIN: No rash or erythema of visible areas Initial Vital Signs Initial Vital Signs: Vital Signs Temperature 98.5 F 05/04/20 17:54 Pulse Rate 71 05/04/20 17:54 Respiratory Rate 25 H 05/04/20 17:54 Blood Pressure 150/65 H 05/04/20 17:54 Pulse Oximetry 99 05/04/20 17:54 Course Course Course Narrative: patient has her own interrogation device at home which is not working. I've spoken with on-call cardiology at [facility] and upon discussing the case we share the opinion that she is appropriate for DC with close follow up and return precautions. He will arrange for patient to be observed with pacer interrogator in the [place] office. Orders Ordered: ED Orders 05/04/20 20:07 CT angio chest PE protocol Stat Discontinued Medications Sodium Chloride (Normal Saline 0.9%) 1,000 mls @ 150 mls/hr IV CONT MARISOL Last Infusion: 05/04/20 19:13 Dose: 0 mls/hr Documented by: Admin: 05/04/20 18:20 Dose: 150 mls/hr Documented by: JEAN Vital Signs Vital signs: Vital Signs - 8 hr 05/04/20 20:31 05/04/20 21:00 05/04/20 21:16 Pulse Rate 72 69 70 Respiratory Rate 18 Blood Pressure 144/88 H Pulse Oximetry 98 98 99 MDM - Arrhythmia/Palpitations Lab Data Result diagrams: 05/04/20 18:10 05/04/20 18:10 Labs: Lab Results 05/04/20 05/04/20 05/04/20 Range/Units 18:10 18:10 18:10 WBC 8.0 (4.5-11.0) X10^3/uL RBC 3.81 L (4.0-5.2) X10^6/uL Hgb 13.1 (12.0-16.0) g/dL Hct 38.2 (36-46) % MCV 100.4 H (80-100) fL MCH 34.5 H (26-34) PG MCHC 34.3 (30-36) % RDW 13.4 (11.6-14.8) % Plt Count 286 (150-400) X10^3/uL Neut % (Auto) 58.9 (50-75) % Lymph % (Auto) 32.3 (25-40) % [place] % (Auto) 7.3 (3-14) % Eos % (Auto) 1.0 L (2-4) % Baso % (Auto) 0.5 (0-2) % Neut # (Auto) 4700 (6020-1395) /uL Lymph # (Auto) 2600 (3562-3647) /uL [place] # (Auto) 600 (0-900) /uL Eos # (Auto) 100 (0-450) /uL Baso # (Auto) 0 (0-100) /uL PT 11.1 (10.1-12.7) SECONDS INR 1.0 (0.9-1.3) APTT 29 (26.4-36.2) SECONDS D-Dimer (<230) ng/mL Sodium 138 (137-145) mmol/L Potassium 3.9 (3.4-5.1) mmol/L Chloride 105 (98-107) mmol/L Carbon Dioxide 30 (22-32) mmol/L BUN 21 H (7-17) mg/dL Creatinine 0.69 (0.52-1.04) mg/dL Estimated GFR > 60.0 (>60) mL/min BUN/Creatinine Ratio 30.4 H (6-22) Glucose 102 (80-110) mg/dL Calcium 9.3 (8.4-10.2) mg/dL Total Bilirubin 0.4 (0.2-1.3) mg/dL AST 26 (14-36) IU/L ALT 19 (<35) IU/L Alkaline Phosphatase 55 (38-126) U/L Total Creatine Kinase 90 (30-135) U/L CK-MB (CK-2) TNP CK-MB (CK-2) Rel Index TNP Troponin I < 0.012 (0.01-0.034) ng/mL NT-Pro-B Natriuret Pep (<125) pg/mL Total Protein 7.2 (6.3-8.2) g/dL Albumin 4.2 (3.5-5.0) g/dL Globulin 3.0 (1.7-4.1) g/dL Albumin/Globulin Ratio 1.4 (1.0-2.8) Lipase 177 (23-300) U/L 05/04/20 05/04/20 Range/Units 18:10 18:10 WBC (4.5-11.0) X10^3/uL RBC (4.0-5.2) X10^6/uL Hgb (12.0-16.0) g/dL Hct (36-46) % MCV (80-100) fL MCH (26-34) PG MCHC (30-36) % RDW (11.6-14.8) % Plt Count (150-400) X10^3/uL Neut % (Auto) (50-75) % Lymph % (Auto) (25-40) % [place] % (Auto) (3-14) % Eos % (Auto) (2-4) % Baso % (Auto) (0-2) % Neut # (Auto) (9263-0659) /uL Lymph # (Auto) (4926-1825) /uL [place] # (Auto) (0-900) /uL Eos # (Auto) (0-450) /uL Baso # (Auto) (0-100) /uL PT (10.1-12.7) SECONDS INR (0.9-1.3) APTT (26.4-36.2) SECONDS D-Dimer 810 H (<230) ng/mL Sodium (137-145) mmol/L Potassium (3.4-5.1) mmol/L Chloride (98-107) mmol/L Carbon Dioxide (22-32) mmol/L BUN (7-17) mg/dL Creatinine (0.52-1.04) mg/dL Estimated GFR (>60) mL/min BUN/Creatinine Ratio (6-22) Glucose (80-110) mg/dL Calcium (8.4-10.2) mg/dL Total Bilirubin (0.2-1.3) mg/dL AST (14-36) IU/L ALT (<35) IU/L Alkaline Phosphatase (38-126) U/L Total Creatine Kinase 89 (30-135) U/L CK-MB (CK-2) TNP CK-MB (CK-2) Rel Index TNP Troponin I < 0.012 (0.01-0.034) ng/mL NT-Pro-B Natriuret Pep 81 (<125) pg/mL Total Protein (6.3-8.2) g/dL Albumin (3.5-5.0) g/dL Globulin (1.7-4.1) g/dL Albumin/Globulin Ratio (1.0-2.8) Lipase (23-300) U/L Imaging Data CT scan - chest: Radiologist's Impresson: 24 DO Mee Matute Patient Imaging - Elizabeth Fonseca H 65 F 1955 ACTIVITY DATE EXAM STATUS AUTHOR 05/04/20 20:07 Signed Eryn Paredes 05/04/20 18:04 Signed Alfa Howell ORDER STATUS ORDER START ORDER DETAIL XR chest 1V Cancelled 05/04/20 18:[address] [address] [address] Scan Report Signed Patient: Elizabeth Fonseca R#: [id number] : 4Acct:[id number] Age/Sex: 65 / FDate of Service: 05/04/20 Loc: ED Accession Number: [id number] Procedure: CT angio chest PE protocol Ordering Provider: Steven Taylor D.O. PROCEDURE: CT ANGIO CHEST PE PROTOCOL INDICATIONS: chest pain, fatigue, SOB, ddimer elevated TECHNIQUE: After the administration of intravenous contrast, 2 mm thick sections acquired from the pulmonary apices to the posterior costophrenic angles. 3-dimensional maximum intensity projection (MIP) coronal and sagittal reformats were then acquired through the thorax. For radiation dose reduction, the following was used: automated exposure control, adjustment of mA and/or kV according to patient size. COMPARISON: [facility], CT, CT CHEST W CON, 08/09/2019, 8:53. FINDINGS: Image quality: Excellent. Pulmonary arteries: Pulmonary arteries are normal in size, and demonstrate no intraluminal filling defects to suggest central pulmonary embolism. Lungs and pleura: Lungs are clear. No pleural effusions or pneumothorax. Central and peripheral airways are patent. Mediastinum: Heart size is normal, without pericardial effusion. No mediastinal or hilar adenopathy. Thoracic aorta is normal in caliber and enhancement. Esophagus is normal in caliber, without hiatal hernia. Bones and chest wall: No suspicious bony lesions. Ribs and thoracic spine appear intact throughout. Thyroid gland is unremarkable. No axillary or supraclavicular adenopathy. Abdomen: Hepatic cyst is noted. Otherwise, visualized upper abdominal solid organs appear normal in the early arterial phase of enhancement. IMPRESSION: 1. No pulmonary embolism. Lungs are clear. Dictated by: Eryn Paredes M.D. on 05/04/2020 at 20:45 Approved by: Eryn Paredes M.D. on 05/04/2020 at 20:46 ECG Data Attestation: I personally reviewed and interpreted this ECG as follows: Interpretation: EKG is normal sinus rhythm rate [72] and free of any signs of ischemia or ectopy. No ST segmental elevation or depression. No T wave inversions Discharge Plan Departure Patient Disposition: Home Clinical Impression: Atypical chest pain, Heart palpitations Discharge Date/Time: 05/04/20 21:16 Instructions: DI for Atypical Chest Pain, DI for Palpitations Activity Restrictions/Additional Instructions: *You have been diagnosed with [atypical chest pain and palpitations] *What to do: *Take medications as directed *Follow up with your primary care provider in 2-3 days, call for an appointment. Let them know you were seen in the Emergency Department and that we ask that you be seen in follow up *Return to ER if you should have any new, worsening or concerning symptoms Prescriptions: No Action (DME) ICD (Implantable Cardio Device) See Rx Instructions .Route .MEDSUPPLY Qty: 1 RF: 0 Septalocculsion Device Implant RF: 0 estradiol 0.01 % (0.1 mg/gram) cream See Rx Instructions VAG .HS Qty: 42.5 RF: 1 rizatriptan 10 mg tablet 10 mg PO Q2H PRN (Reason: migraine headache) Qty: 27 RF: 1 albuterol sulfate 90 mcg/actuation HFA aerosol inhaler 2 puff INHALATION Q6H PRN (Reason: shortness of breath or wheezing) Qty: 6.7 RF: 0 ketorolac 10 mg tablet 10 mg PO Q6H PRN (Reason: pain) Qty: 14 RF: 0 codeine-guaifenesin 6.3-100 mg/5 mL liquid 8 ml PO Q4-6H PRN (Reason: cough) Qty: 473 RF: 0 estradiol 0.075 mg/24 hr patch semiweekly 1 patch transdermal 2XW Qty: 24 RF: 3 doxycycline monohydrate 100 mg capsule 100 mg PO BID Qty: 20 RF: 0 flecainide 100 mg tablet 100 mg PO Q12H RF: 0 fluconazole [Diflucan] 150 mg tablet 150 mg PO DAILY PRN (Reason: YEAST INFECTION) Qty: 1 RF: 0 Referrals: Delvin Martines MD [Non-Staff] - Kilo Fuller DO [Primary Care Provider] -
--- NOTE | 2020-05-04 18:04 | DI.RAD.S_ITS ---
PROCEDURE: XR CHEST 1V INDICATIONS: chest pain, SOB, palpitations TECHNIQUE: One view of the chest was acquired. COMPARISON: [facility], CR, XR CHEST 2V, 07/06/2019, 0:25. FINDINGS: Surgical changes and devices: Left -sided cardiac pacer device is in place. Lungs and pleura: Stable appearance of minimal left basilar streaky opacity. No focal consolidation. No pleural effusions or pneumothorax. Mediastinum: Mediastinal contours appear normal. Heart size is normal. Bones and chest wall: No suspicious bony lesions. Overlying soft tissues appear unremarkable. IMPRESSION: Chest without acute cardiopulmonary abnormalities. Dictated by: Alfa Howell M.D. on 05/04/2020 at 18:07 Approved by: Alfa Howell M.D. on 05/04/2020 at 18:08
[2020-05-04] MEDS: SODIUM CHLORIDE 0.9% 1,000 ML 150 ML IV (18:20)
[2020-05-04 18:33] LABS: Add Manual Diff / Slide Review NO; Basophils Absolute Auto 0 /uL (0-100); Basophils Percent Auto 0.5 % (0-2); Eosinophils Absolute Auto 100 /uL (0-450); Hematocrit 38.2 % (36-46); Hemoglobin 13.1 g/dL (12.0-16.0); Lymphocytes Absolute Auto 2600 /uL (1100-4500); Lymphocytes Percent Auto 32.3 % (25-40); Mean Corpuscular HGB Conc 34.3 % (30-36); Mean Corpuscular Hemoglobin 34.5 PG (26-34); Mean Corpuscular Volume 100.4 fL (80-100); Monocytes Absolute Auto 600 /uL (0-900); Monocytes Percent Auto 7.3 % (3-14); Neutrophils Absolute Auto 4700 /uL (1500-7000); Neutrophils Percent Auto 58.9 % (50-75); Platelet Count 286 X10^3/uL (150-400); Red Blood Cell Count 3.81 X10^6/uL (4.0-5.2); Red Cell Distribution Width 13.4 % (11.6-14.8)
[2020-05-04 18:36] LABS: Prothrombin Time 11.1 SECONDS (10.1-12.7)
[2020-05-04 18:39] LABS: PTT Partial Thromboplastin Tim 29 SECONDS (26.4-36.2)
[2020-05-04 18:40] LABS: Alanine Aminotransferase 19 IU/L (<35); Albumin 4.2 g/dL (3.5-5.0); Albumin Globulin Ratio 1.4 (1.0-2.8); Alkaline Phosphatase 55 U/L (38-126); Aspartate Aminotransferase 26 IU/L (14-36); BUN Creatinine Ratio 30.4 (6-22); Bilirubin Total 0.4 mg/dL (0.2-1.3); Blood Urea Nitrogen 21 mg/dL (7-17); Calcium 9.3 mg/dL (8.4-10.2); Carbon Dioxide 30 mmol/L (22-32); Chloride 105 mmol/L (98-107); Creatine Kinase 90 U/L (30-135); Estimated Glomerular Filt Rate > 60.0 mL/min (>60); Glucose 102 mg/dL (80-110); HEMOLYSIS < 15 (0-50); Lipase 177 U/L (23-300); Potassium 3.9 mmol/L (3.4-5.1); Sodium 138 mmol/L (137-145); Total Protein 7.2 g/dL (6.3-8.2)
[2020-05-04 18:47] LABS: D Dimer 810 ng/mL (<230)
[2020-05-04 18:51] LABS: Troponin I < 0.012 ng/mL (0.01-0.034)
[2020-05-04 19:01] LABS: Creatine Kinase 89 U/L (30-135)
[2020-05-04 19:13] LABS: NT-proBNP (BNP-Adult 18+) 81 pg/mL (<125); Troponin I < 0.012 ng/mL (0.01-0.034)
--- NOTE | 2020-05-04 20:07 | DI.CT.S_ITS ---
PROCEDURE: CT ANGIO CHEST PE PROTOCOL INDICATIONS: chest pain, fatigue, SOB, ddimer elevated TECHNIQUE: After the administration of intravenous contrast, 2 mm thick sections acquired from the pulmonary apices to the posterior costophrenic angles. 3-dimensional maximum intensity projection (MIP) coronal and sagittal reformats were then acquired through the thorax. For radiation dose reduction, the following was used: automated exposure control, adjustment of mA and/or kV according to patient size. COMPARISON: [facility], CT, CT CHEST W CON, 08/09/2019, 8:53. FINDINGS: Image quality: Excellent. Pulmonary arteries: Pulmonary arteries are normal in size, and demonstrate no intraluminal filling defects to suggest central pulmonary embolism. Lungs and pleura: Lungs are clear. No pleural effusions or pneumothorax. Central and peripheral airways are patent. Mediastinum: Heart size is normal, without pericardial effusion. No mediastinal or hilar adenopathy. Thoracic aorta is normal in caliber and enhancement. Esophagus is normal in caliber, without hiatal hernia. Bones and chest wall: No suspicious bony lesions. Ribs and thoracic spine appear intact throughout. Thyroid gland is unremarkable. No axillary or supraclavicular adenopathy. Abdomen: Hepatic cyst is noted. Otherwise, visualized upper abdominal solid organs appear normal in the early arterial phase of enhancement. IMPRESSION: 1. No pulmonary embolism. Lungs are clear. Dictated by: Eryn Paredes M.D. on 05/04/2020 at 20:45 Approved by: Eryn Paredes M.D. on 05/04/2020 at 20:46
[2020-05-04 20:13] VITALS: BP 143/106; PULSE 71; O2SAT 98
[2020-05-04 20:31] VITALS: PULSE 72; O2SAT 98
[2020-05-04 21:00] VITALS: PULSE 69; O2SAT 98
[2020-05-04 21:16] VITALS: BP 144/88; PULSE 70; RESP 18; O2SAT 99
--- NOTE | 2020-05-04 21:20 | PC.NURSE ---
Pt reports that for the past 3 days she has been feeling lightheaded, heart palpitations, and mild CP. She has an extensive cardiac hx with an implanted pacemaker/defib. Pt tried to interrogate her pacemaker at home with no success and was told to come in to be evaluated
== END 2020-05-04 21:16 | disposition home or self-care (01) ==
PROVIDERS: Emergency Provider Emergency Medicine; PCP Family Medicine
DX: R07.89 Other chest pain (principal); R00.2 Palpitations; R79.89 Other specified abnormal findings of blood chemistry; R42 Dizziness and giddiness; Z95.0 Presence of cardiac pacemaker; R06.00 Dyspnea, unspecified
CPT/HCPCS: 36415; 71045; 71275; 80053; 82550; 83690; 83880; 84484; 85025; 85379; 85610; 85730; 93005; 96360; 99284; Q9967

== ENCOUNTER → 2020-05-10 13:43 | Outpatient (CLI) | payer MEDICARE, BC, SELFPAY ==
--- NOTE | 2020-05-10 13:44 | DI.ECHO.S_ITS ---
[facility]---------+ [facility] +---------+ : : [id number] : : : : [id number] : : : : Phone: [phone] Echocardiogram Report + + :Name: RHEA DE LUNA Study Date: 05/10/2020 Height: 65 in : :[facility] Weight: 155 lb : : Gender: Female BSA: 1.8 m2 : :: 1955 Age: 65 yrs BP: 103/59 mmHg: :Reason For Study: HISTORY OF PFO, CURRENT TIA SYMPTOMS : :Ordering Physician: THOMAS ELAINE Performed By: Melissa Carey : :Referring: KARAN ARROYO : + + Interpretation Summary Patient history of PFO closure patch 20 years ago. The left ventricle is normal in size and wall thickness. The ejection fraction is estimated to be 55-60%. There are no focal wall motion abnormalities. Diastolic parameters suggest probable normal left ventricular diastolic function and normal filling pressures. The right ventricle is normal in size and function. There is a pacemaker lead in the right ventricle. The right ventricular systolic pressure is estimated to be at least 27 mmHg based on an estimated right atrial pressure of 3 mm Hg. Both atria are normal in size. Patient history of PFO closure device. Injection of contrast documented no interatrial shunt. There is mild mitral regurgitation. There is mild to moderate tricuspid regurgitation. There is no other significant valvular heart disease. The aortic root is normal size. Procedure: A two-dimensional transthoracic echocardiogram with color flow and Doppler was performed. The study quality was technically adequate. There is no prior echocardiogram noted for this patient. A saline contrast injection was performed to assess for cardiac shunting. The injection was performed through an intravenous line in the left arm. Left Ventricle: The left ventricle is normal in size and wall thickness. The ejection fraction is estimated to be 55-60%. There are no focal wall motion abnormalities. Diastolic parameters suggest probable normal left ventricular diastolic function and normal filling pressures. Right Ventricle: The right ventricle is normal in size and function. There is a pacemaker lead in the right ventricle. Atria: Both atria are normal in size. There is a catheter/pacemaker lead seen in the right atrium. Patient history of PFO closure device. Injection of contrast documented no interatrial shunt. Mitral Valve: The mitral valve is normal in structure and function. There is mild mitral regurgitation. Aortic Valve: The aortic valve is trileaflet. The aortic valve opens well. There is no aortic valve stenosis. No aortic regurgitation is present. Tricuspid Valve: The tricuspid valve is not well visualized, but is grossly normal. There is mild to moderate tricuspid regurgitation. The right ventricular systolic pressure is estimated to be at least 27 mmHg based on an estimated right atrial pressure of 3 mm Hg. Pulmonic Valve: The pulmonic valve is not well visualized. There is no pulmonic valvular regurgitation. There is no other significant valvular heart disease. Great Vessels: The aortic root is normal size. The dimensions of the ascending aorta are normal. The IVC is of normal diameter and collapses greater than 50% with a sniff. This suggests a low right atrial pressure of 3 mm Hg. Pericardium/ Pleura There is no pericardial effusion. There is no pleural effusion. MMode/2D Measurements & Calculations LVIDd: 4.4 cm LVOT diam: 2.0 cm LVIDs: 2.7 cm Ao root diam: 3.0 cm FS: 37.9 % asc Aorta Diam: 3.3 cm EPSS: 0.58 cm Ao Arch Diam (Prox Trans): 3.0 cm IVSd: 0.67 cm LVPWd: 0.81 cm LV grover. diameter/BSA (cm/m^2): 2.5 LV sys. diameter/BSA (cm/m^2): 1.5 LA A2 area: 16.9 cm2 RA long axis: 3.8 cm LA A4 area: 10.4 cm2 RA area: 9.5 cm2 LA length (vol): 3.6 cm RA vol: 20.3 ml LA vol: 41.9 ml RA : 11.4 ml/m2 LA vol index: 23.6 ml/m2 IVC diam: 1.3 cm RVD1 (basal): 3.2 cm TAPSE: 2.1 cm Doppler Measurements & Calculations Ao V2 max: 87.0 cm/sec LVOT Max Tyler: 84.0 cm/sec Ao V2 mean: 60.0 cm/sec LV V1 max P.8 mmHg Ao max P.0 mmHg LV V1 VTI: 18.5 cm Ao mean P.7 mmHg MARYJANE(I,D): 2.7 cm2 Ao V2 VTI: 21.2 cm MARYJANE(V,D): 2.9 cm2 sev ratio: 0.87 MARYJANE indexed to BSA (cm^2/m^2): 1.5 MV E max tyler: 84.5 cm/sec TR max tyler: 242.5 cm/sec MV A max tyler: 85.9 cm/sec TR max P.5 mmHg MV E/A: 0.98 PA V2 max: 46.7 cm/sec Med Peak E' Tyler: 7.4 cm/sec PA V2 mean: 33.7 cm/sec E/E' med: 11.4 PA mean P.51 mmHg Lat Peak E' Tyler: 9.8 cm/sec PA pr(Accel): 31.0 mmHg E/E' lat: 8.6 E/e' average: 10.0 MV dec time: 0.16 sec SV(LVOT): 56.4 ml Reading Physician:05:36 PM
== END ==
PROVIDERS: PCP Family Medicine; Referring Provider Family Medicine; Visit Provider Family Medicine
DX: I08.1 Rheumatic disorders of both mitral and tricuspid valves (principal); Q21.1 Atrial septal defect; R07.89 Other chest pain; F48.8 Other specified nonpsychotic mental disorders; Z95.810 Presence of automatic (implantable) cardiac defibrillator; Z86.79 Personal history of other diseases of the circulatory system
CPT/HCPCS: C8929

== ENCOUNTER → 2020-08-04 14:46 | Outpatient (CLI) | payer MEDICARE, BC, SELFPAY ==
[2020-08-04 15:27] LABS: Cholesterol 156 mg/dL (140-199); HDL Cholesterol 46 mg/dL (40-60); LDL Cholesterol Calculated 94 mg/dL (<100); Triglycerides 78 mg/dL (35-150)
== END ==
PROVIDERS: PCP Family Medicine; Referring Provider Family Medicine; Visit Provider Family Medicine
DX: E78.5 Hyperlipidemia, unspecified (principal)
CPT/HCPCS: 36415; 80061